=== PATIENT | female | born 1965 ===

== ENCOUNTER 2017-04-13 15:19 | Emergency (ER) | payer BC, OTHER ==
[2017-04-13 16:22] VITALS: BMI 32.9
[2017-04-13 16:24] VITALS: TEMP 99.3
[2017-04-13] MEDS ORDERED: Amoxicillin-Clav 875-125 mg Tab PO STA (20:02)
[2017-04-13 20:07] VITALS: BP 155/88; PULSE 70; RESP 18; O2SAT 98
--- NOTE | 2017-04-13 20:08 | RAD ---
EXAM: XR Chest, 2 Views EXAM DATE/TIME: 04/13/2017 5:28 PM CLINICAL HISTORY: 52 years old, female; Signs and symptoms; Cough; Symptoms not specified TECHNIQUE: Frontal and lateral views of the chest. COMPARISON: No relevant prior studies available. FINDINGS: ARTIFACTS: Skin fold is seen projected over the left lung base. LUNGS: Lungs are well-inflated, and appear clear radiographically, without evidence of focal consolidation/infiltrate or pulmonary vascular congestion. PLEURAL SPACE: No pneumothorax or pleural effusions seen. HEART: Heart does not appear significantly enlarged. MEDIASTINUM: Mediastinal contour is within normal limits. BONES/JOINTS: No acute bony abnormality visualized. UPPER ABDOMEN: Surgical clips in the right upper quadrant, most likely from prior cholecystectomy. IMPRESSION: - No radiographic evidence of acute disease in the chest. - See above for remaining findings.
--- NOTE | 2017-04-13 20:15 | ED PDOC ---
Arrival/HPI - General Chief Complaint: Medical Clearance Time Seen by Provider: 04/13/17 17:28 Historian: Patient - History of Present Illness Narrative History of Present Illness (Text): 04/13/17 20:47 52-year-old female presents today with flulike symptoms since Thursday. Patient was sent in by her GI doctor for further evaluation. Patient states she had endoscopy on Thursday. Patient states she was feeling fine and Thursday she developed flulike symptoms. Patient complaining of headaches fevers body aches cough and nasal congestion. Patient denies sick contacts at home. Patient states she did not get her flu shot this year. Patient denies abdominal pain. No nausea or vomiting. Patient denies dizziness or weakness. Time/Duration: Other (2 days) Symptom Onset: Sudden Quality: Aching Severity Level: 4 Past Medical History - Provider Review Nursing Documentation Reviewed: Yes - Travel History Have you recently traveled outside [place] w/in the past 3 mons?: No - Cardiac Hx Cardiac Disorders: No - Pulmonary Hx Respiratory Disorders: No - Neurological Hx Neurological Disorder: No - HEENT Hx HEENT Disorder: No - Renal Hx Renal Disorder: No - Endocrine/Metabolic Hx Endocrine Disorders: No - Hematological/Oncological Hx Blood Disorders: No - Integumentary Hx Dermatological Disorder: No - Musculoskeletal/Rheumatological Hx Musculoskeletal Disorders: No - Gastrointestinal Hx Gastrointestinal Disorders: No - Genitourinary/Gynecological Hx Genitourinary Disorders: No - Psychiatric Hx Depression: No Hx Emotional Abuse: No Hx Physical Abuse: No Hx Substance Use: No - Anesthesia Hx Anesthesia: Yes - Suicidal Assessment Feels Threatened In Home Enviroment: No Family/Social History - Physician Review Nursing Documentation Reviewed: Yes Family/Social History: Unknown Family HX Smoking Status: Never Smoked Hx Alcohol Use: No Hx Substance Use: No Hx Substance Use Treatment: No Allergies/Home Meds Allergies/Adverse Reactions: Allergies No Known Allergies Allergy (Verified 04/13/17 16:22) Review of Systems - Review of Systems Constitutional: Fatigue, Fevers ENT: Sore Throat, Sinus Congestion Respiratory: Cough. absent: SOB Cardiovascular: absent: Chest Pain, Palpitations Gastrointestinal: absent: Abdominal Pain, Nausea, Vomiting Genitourinary Female: absent: Dysuria, Frequency Musculoskeletal: absent: Arthralgias Skin: absent: Rash, Pruritis Neurological: Headache. absent: Dizziness Psychiatric: absent: Anxiety, Depression Physical Exam Vital Signs Reviewed: Yes Vital Signs Temp Pulse Resp BP Pulse Ox 04/13/17 18:30 70 18 155/88 H 98 04/13/17 16:23 99.3 F 102 H 18 164/92 H 96 Temperature: Afebrile Blood Pressure: Hypertensive Pulse: Tachycardic Respiratory Rate: Normal Appearance: Positive for: Well-Appearing, Non-Toxic, Comfortable Pain Distress: None Mental Status: Positive for: Alert and Oriented X 3 - Systems Exam Head: Present: Atraumatic Pupils: Present: PERRL Extroacular Muscles: Present: EOMI Conjunctiva: Present: Normal Ears: Present: Normal, NORMAL TM Mouth: Present: Moist Mucous Membranes. No: Drooling, Trismus Pharnyx: Present: Normal. No: ERYTHEMA, EXUDATE, TONSILS ENLARGED, Peritonsilar Swelling, Uvular Deviation Nose (External): Present: Atraumatic Nose (Internal): Present: Normal Inspection Neck: Present: Normal Range of Motion, Trachea Midline. No: Meningeal Signs Respiratory/Chest: Present: Clear to Auscultation, Good Air Exchange. No: Respiratory Distress, Accessory Muscle Use Cardiovascular: Present: Regular Rate and Rhythm, Normal S1, S2. No: Murmurs Abdomen: No: Tenderness, Distention, Rebound, Guarding Upper Extremity: Present: Normal ROM Lower Extremity: Present: Normal ROM Neurological: Present: GCS=15, Speech Normal Skin: Present: Warm, Dry, Normal Color. No: Rashes Psychiatric: Present: Alert, Oriented x 3 Medical Decision Making ED Course and Treatment: 04/13/17 20:50 Patient is nontoxic well-appearing. C/o flu-like symptoms. tylenol PO rapid flu; negative Chest x-ray: No infiltrate or effusion or cardiomegaly Tamiflu po Patient reassessment: Pt feeling better; vitals stable. I discussed the case in depth with Dr. Raman; he states that due to recent endoscopy we can not r/o micro aspiration; he would like to start patient on augmentin. augmentin given PO discussed all results with patient. I advised follow up with primary care physician within the next 2 days. I advised increase fluids and return if symptoms worsen persist or if new symptoms develop stressed importance of close f/u and immediate return if symptoms worsen, or new concerning symptoms develop. Patient verbalizes understanding of discharge instructions and need for immediate followup. all aspects of this case were discussed the attending of record. IMPRESSION; Influenza, cough Tylenol every 4 hours as needed for pain/fever reduction Tamiflu: 1 capsule twice daily 5 days augmentin; 1 tablet twice daily x 10 days. Increase fluids Followup with primary care physician the next 2 days Return if symptoms worsen persist or if new symptoms develop: Continued high fevers, dizziness, weakness, chest pain or shortness of breath vomiting/diarrhea , or if any other concerning symptoms develop. Reassessment Condition: Re-examined, Improved - Lab Interpretations Lab Results: Lab Results 04/13/17 16:30: Influenza Typ A,B (EIA) Negative for flu a/b - RAD Interpretation Radiology Orders: 04/13/17 17:28 CHEST TWO VIEWS (PA/LAT) [RAD] Stat - Medication Orders Current Medication Orders: Discontinued Medications Acetaminophen (Tylenol 325mg Tab) 975 mg PO STAT STA Stop: 04/13/17 17:47 Last Admin: 04/13/17 18:00 Dose: 975 mg MAR Pain/Vitals Document 04/13/17 18:00 MICKEY (Rec: 04/13/17 18:00 [facility] [id number]) Pain Reassessment Is This A Pain ReAssessment? No Sleep Is patient sleeping during reassessment? No Presence of Pain Presence of Pain Yes Amoxicillin/Clavulanate Potassium (Augmentin 875 Mg-125 Mg Tab) 1 tab PO STAT STA PRN Reason: Protocol Stop: 04/13/17 20:03 Last Admin: 04/13/17 20:29 Dose: 1 tab Oseltamivir Phosphate (Tamiflu Cap) 75 mg PO STAT STA PRN Reason: Protocol Stop: 04/13/17 19:51 Last Admin: 04/13/17 20:29 Dose: 75 mg Disposition/Present on Arrival - Present on Arrival Any Indicators Present on Arrival: No History of DVT/PE: No History of Uncontrolled Diabetes: No Urinary Catheter: No History of Decub. Ulcer: No History Surgical Site Infection Following: None - Disposition Have Diagnosis and Disposition been Completed?: Yes Diagnosis: Influenza, Cough Disposition: HOME/ ROUTINE Disposition Time: 20:12 Patient Plan: Discharge Condition: GOOD Discharge Instructions (ExitCare): Influenza (ED) Additional Instructions: Tylenol every 4 hours as needed for pain/fever reduction Tamiflu: 1 capsule twice daily 5 days augmentin; 1 tablet twice daily x 10 days. Increase fluids Followup with primary care physician the next 2 days Return if symptoms worsen persist or if new symptoms develop: Continued high fevers, dizziness, weakness, chest pain or shortness of breath vomiting/diarrhea , or if any other concerning symptoms develop. Prescriptions: Amoxicillin/Clavulanate [Augmentin 875 MG-125 MG] 1 tab PO BID #20 tab Oseltamivir [Tamiflu] 75 mg PO BID #10 cap Referrals: Luther Cho MD [Staff Provider] - Follow up with primary Niall Raman MD [Medical Doctor] - Follow up with primary Forms: [facility] (Lao), WORK NOTE
== END 2017-04-13 20:36 | disposition home or self-care (01) ==
LOC: ED 15:19
DX: J11.1 Influenza due to unidentified influenza virus with other respiratory manifestations (principal)